=== PATIENT | female | born 1965 | race Caucasian/White ===

== ENCOUNTER → 2017-12-31 | Outpatient (CLI) | payer BC ==
[~2017-12-31] MED LIST: AMO500 PO; ASP325 PO; BUP75 PO; CITA10SO9 PO; HCTZ25 PO; IBU200 PO; NICO-180 TD; NO RTN MEDS; OXYC1TAB54 PO
--- NOTE | 2017-12-31 10:55 | EKG ---
[place]AC[place] [facility] [place] NAME: JUSTUS MARI : [id number] MR: [id number]: [id number] EXAM DATE: ORDERING PHYSICIAN: INOCENCIO CEDILLO TECHNOLOGIST: ROD Test Reason : PRE OP Blood Pressure : / mmHG Vent. Rate : 076 BPM Atrial Rate : 076 BPM P-R Int : 134 ms QRS Dur : 088 ms QT Int : 410 ms P-R-T Axes : 055 057 040 degrees QTc Int : 461 ms Normal sinus rhythm Normal ECG When compared with ECG of 09-AUG-2012 10:26, No significant change was found Confirmed by DONNA JONES ([id number] on 12/31/2017 1:35:55 PM Referred By: MAMADOU Confirmed By:DONNA JONES
== END ==
LOC: LAB 10:26
PROVIDERS: ATTEND Anesthesiology
DX: Z01.810 Encounter for preprocedural cardiovascular examination (principal); G56.02 Carpal tunnel syndrome, left upper limb; M65.842 Other synovitis and tenosynovitis, left hand; E11.9 Type 2 diabetes mellitus without complications; E07.9 Disorder of thyroid, unspecified
CPT/HCPCS: 36415; 82040; 82247; 82310; 82374; 82435; 82565; 82947; 84075; 84132; 84155; 84295; 84450; 84460; 84520; 93005

== ENCOUNTER → 2018-01-18 | Outpatient (REF) | payer BC | LOC: ZZSENDIN 12:00 | PROVIDERS: ATTEND Orthopaedic Surgery | DX: M67.432 Ganglion, left wrist (principal) | CPT/HCPCS: 88304 ==